=== PATIENT | male | born 1975 | race Two or more races ===

== ENCOUNTER 2021-09-13 18:22 | Emergency (ER) | payer OTHER ==
[~2021-09-13] VITALS: Ht 177.8 cm; Wt 89.8 kg
[2021-09-13 18:38] VITALS: BP 122/62
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
[2021-09-13] MEDS ORDERED: KETOROLAC TROMETHAMINE INJ 30 MG/ML VIAL ONE (18:55)
[2021-09-13] MEDS ORDERED: NAPR500T6 PO (18:57)
[2021-09-13] MEDS ORDERED: CYCL10TA9 PO (18:57)
[2021-09-13] MEDS ORDERED: KETOROLAC TROMETHAMINE INJ 60 MG/2 ML VIAL IM ONE (19:00)
--- NOTE | 2021-09-13 19:15 | NUR ---
Patient discharged to home in stable condition. RX Written and verbal after care instructions given. Patient verbalizes understanding of instruction. PT ambulatory with a steady gait
== END 2021-09-13 19:14 | disposition home or self-care (01) ==
LOC: ER 18:22
DX: S16.1XXA Strain of muscle, fascia and tendon at neck level, initial encounter (principal); V49.49XA Driver injured in collision with other motor vehicles in traffic accident, initial encounter; Y93.89 Activity, other specified; Y92.413 State road as the place of occurrence of the external cause; Y99.8 Other external cause status
CPT/HCPCS: 96372; 99283; J1885